=== PATIENT | female | born 1985 | race Caucasian/White ===

== ENCOUNTER 2021-04-30 09:10 | Emergency (ER) | payer OTHER, SELFPAY ==
[2021-04-30 09:15] VITALS: BP 134/84; PULSE 87; RESP 18; TEMP 36.6; O2SAT 99; BMI 28.3
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
--- NOTE | 2021-04-30 09:41 | PC.NURSE ---
MD did a rectal exam and states that the area looks well with no active bleeding or noticeable cuts or incisions.
== END 2021-04-30 10:00 | disposition home or self-care (01) ==
PROVIDERS: Emergency Provider Emergency Medicine; Family Provider Physician Assistant Medical; PCP Physician Assistant Medical
DX: K64.8 Other hemorrhoids (principal); K64.4 Residual hemorrhoidal skin tags; F17.200 Nicotine dependence, unspecified, uncomplicated
CPT/HCPCS: 99281

== ENCOUNTER 2021-05-09 12:42 | Day surgery (SDC) | payer OTHER, SELFPAY ==
[2021-05-08 09:24] VITALS: BMI 28.3
[2021-05-09] VITALS (8 sets, daily range): BP systolic 124–138; BP diastolic 65–94; PULSE 67–100; RESP 13–16; TEMP 36.3–36.8; O2SAT 98–100; BMI 28.3
[2021-05-09] MEDS: LACTATED RINGERS 1,000 ML 42 ML IV (13:36)
[2021-05-09] MEDS: ACETAMINOPHEN 325 MG TABLET 975 MG PO (13:39)
[2021-05-09] MEDS: GABAPENTIN 300 MG CAPSULE PO (13:39)
[2021-05-09] MEDS: SCOPOLAMINE 1 PATCH TOP (13:39)
--- NOTE | 2021-05-09 14:09 | PM.PREOP ---
Pre-operative Note Interval Note History & Physical reviewed/Exam performed by Physician: Yes Changes to H&P: No
--- NOTE | 2021-05-09 14:45 | SUR.OPER ---
Prone on padded OR bed, head in foam head support, gel chest rolls, gel pad under knees, pillow under lower legs, toes free of pressure, arms secured on padded arm boards at <90 degrees abduction. Safety belt at thigh.
[2021-05-09] MEDS: BUPIVACAINE 0.25% (PF) VIAL 30 ML INJ (14:49)
[2021-05-09] MEDS: BUPIVACAINE LIPOSOME 266 MG/20 ML VIAL INJ (14:50)
[2021-05-09] MEDS: DIBUCAINE 1% OINT 28 GM 1 APPLIC TOP (14:51)
--- NOTE | 2021-05-09 15:35 | PM.OP.1 ---
Operative Date/Time/Diagnoses Date of procedure: 05/09/21 Time of procedure: 15:36 Pre-op diagnosis: hemorrhoids Post-op diagnosis: same Procedure & Clinicians Procedure: excisional hemorrhoidectomy Same procedure as scheduled: Yes Indications: grade 3 internal hemorrhoids with external component Surgeon: Jose Daniel Gottlieb Operative Notes Findings: grade 3 internal hemorrhoids with external component. Right anterior and left lateral Specimen(s): none sent Estimated Blood Loss (mL): 10 Procedure in detail: The patient was brought to the operating room placed supine on the table. Bilateral lower extremity compression devices were applied. General anesthesia was induced and they were intubated with an endotracheal tube. They were then placed into prone position and appropriately padded. They were then prepped and draped in usual sterile fashion. Time-out was performed. Rectal block was performed by injecting 20 mL of Exparel into the intersphincteric groove. An internal examination of the anal canal was made. The right anterior and left lateral hemorrhoid pedicles freely prolapsed consistent with grade 3. Beginning with the left lateral pedicle it was grasped elevated and excised with electrocautery off the internal sphincter. The mucosal defect was then closed with a running 3-0 Vicyrl suture. Hemostasis was checked. The procedure was then repeated for the right anterior. The specimens were passed off the field. Wound was irrigated with saline. Gelfoam coated in Dibucaine ointment 1% was then placed into the anal canal. Sponge and instrument counts were correct at the end of the procedure. They emerged from anesthesia were extubated and transferred to the postoperative care unit in stable condition. Complications: none Post-operative Condition: stable Disposition: same day surgery
--- NOTE | 2021-05-09 16:13 | SUR.PHASEII ---
1600- Pt given clothing to redress and curtain closed for privacy. After patient dressed surgeon to bedside to answer additional questions for patient. DC paperwork provided. Sitz bath tools provided as well as teaching.
== END 2021-05-09 16:14 | disposition home or self-care (01) ==
PROVIDERS: Family Provider Physician Assistant Medical; PCP Physician Assistant Medical; Referring Provider Surgery; Visit Provider Surgery
PROC: (CPT 46260; principal; 2021-05-09 14:15)
DX: K64.2 Third degree hemorrhoids (principal); K21.9 Gastro-esophageal reflux disease without esophagitis; F41.9 Anxiety disorder, unspecified
CPT/HCPCS: 46260; 81025; C9290; J0330; J1100; J1885; J2250; J2405; J2704; J3010

== ENCOUNTER 2021-07-14 01:04 | Emergency (ER) | payer OTHER, SELFPAY ==
[2021-07-14 01:12] VITALS: BP 155/85; PULSE 70; RESP 15; TEMP 36.6; O2SAT 100; BMI 28.3
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
[2021-07-14] MEDS: KETOROLAC 30 MG/ML VIAL IM (02:02)
[2021-07-14] MEDS: HYDROCODONE/ACET 5/325 PREPACK 1 BOTTLE MISC (02:34)
== END 2021-07-14 02:40 | disposition home or self-care (01) ==
PROVIDERS: Emergency Provider Emergency Medicine; Family Provider Physician Assistant Medical; PCP Physician Assistant Medical
DX: S42.442A Displaced fracture (avulsion) of medial epicondyle of left humerus, initial encounter for closed fracture (principal); W22.8XXA Striking against or struck by other objects, initial encounter
CPT/HCPCS: 29105; 73080; 96372; 99283; J1885

== ENCOUNTER → 2021-07-26 10:16 | Outpatient (CLI) | payer OTHER, SELFPAY ==
--- NOTE | 2021-07-26 10:32 | DI.CT.S_ITS ---
PROCEDURE: CT UE LT WO CON INDICATIONS: displaced fracture of lower end of left humerus TECHNIQUE: Noncontrast 1-1.5 mm axial sections were acquired through the elbow joint, with coronal and sagittal reformats. COMPARISON: [facility], CR, XR ELBOW LT MIN 3V, 07/14/2021, 1:18. FINDINGS: Image quality: Excellent. Bones: No acute, displaced fracture or dislocation. Soft tissues: Calcifications within the common extensor tendon, compatible with calcific tendinopathy. No elbow joint effusion. IMPRESSION: Calcific tendinopathy of the common extensor tendon. Dictated by: Enrrique Ruiz M.D. on 07/26/2021 at 11:50 Approved by: Enrrique Ruiz M.D. on 07/26/2021 at 12:01
== END ==
PROVIDERS: Family Provider Physician Assistant Medical; PCP Internal Medicine; Referring Provider Orthopaedic Surgery; Visit Provider Orthopaedic Surgery
DX: S42.492B Other displaced fracture of lower end of left humerus, initial encounter for open fracture (principal); M65.822 Other synovitis and tenosynovitis, left upper arm
CPT/HCPCS: 73200

== ENCOUNTER 2022-06-12 09:09 | Emergency (ER) | payer OTHER, SELFPAY ==
[2022-06-12 09:10] VITALS: BP 130/81; PULSE 71; RESP 14; TEMP 36.8; O2SAT 100; BMI 28.3
--- NOTE | 2022-06-12 09:21 | ED_ITS ---
HPI - Neck Pain/Injury General Chief Complaint: Neck Pain/Injury Stated Complaint: pain in lt side of neck, sharp shooting pain ear Time Seen by Provider: 06/12/22 09:20 Mode of arrival: Ambulatory History of Present Illness HPI Narrative: Patient is a 36-year-old female with no pertinent past medical history presenting today with left-sided neck pain and spasm. She decided to start an exercise program she went to the gym a few days ago and since then she is been unable to turn her neck. She has taken Tylenol and Advil at home. No numbness tingling or weakness. It is tender to touch decreased range of motion. No fever or chills. Not a diabetic, no history of drug use. Related Data Home Medications Medication Instructions Recorded Confirmed cetirizine 10 mg capsule (Zyrtec) 10 mg PO DAILY 05/09/21 05/31/21 fluticasone propionate 50 2 spray intranasal DAILY 05/09/21 05/31/21 mcg/actuation nasal spray,suspension (Flonase Allergy Relief) Previous Rx's Medication Instructions Recorded acetaminophen 325 mg capsule 650 mg PO QID PRN pain #60 caps 05/09/21 (Tylenol) docusate sodium 100 mg capsule 100 mg PO BID #40 caps 05/09/21 (Colace) psyllium husk 3.4 gram/5.4 gram 1 tbsp PO BID #660 grams 05/09/21 oral powder (Metamucil) hydrocodone 5 mg-acetaminophen 325 1 tab PO Q6H PRN pain #10 tabs 07/14/21 mg tablet azithromycin 250 mg tablet See Rx Instructions PO .COMPLEX #6 01/09/22 tabs benzonatate 100 mg capsule 100 mg PO BID-TID PRN cough #14 01/09/22 caps diazepam 5 mg tablet (Valium) 5 mg PO Q12HR PRN muscle spasm #10 06/12/22 tabs hydrocodone 5 mg-acetaminophen 325 1 tab PO Q6H PRN pain #10 tabs 06/12/22 mg tablet Allergies Allergy/AdvReac Type Severity Reaction Status Date / Time No Known Drug Allergies Allergy Verified 06/12/22 09:14 Review of Systems Review of Systems ROS Unobtainable: All systems reviewed & are unremarkable except as noted in HPI and below Patient History Medical History Abuse Anxiety Hemorrhoids Surgical History H/O LEEP Social History household members: friend(s) Smoking Status: Current some day smoker alcohol intake: current Smoking Status: Current some day smoker alcohol intake frequency: 0-2 drinks per day Substance Use Type: does not use Exam Initial Vital Signs Initial Vital Signs: Vital Signs Temperature 98.3 F 06/12/22 09:10 Pulse Rate 71 06/12/22 09:10 Respiratory Rate 14 06/12/22 09:10 Blood Pressure 130/81 06/12/22 09:10 Pulse Oximetry 100 06/12/22 09:10 Oxygen Delivery Method 06/12/22 09:10 GENERAL: Alert pleasant 36-year-old female appears uncomfortable HEENT: Head atraumatic,EOMI, pupils reactive, face symmetric, moist mucous membranes NECK: No vertebral tenderness or step-off significant tenderness lateral left side over the trapezius muscle reproducible with palpation. Decreased range of motion to left. CARDIOVASCULAR: Regular rate and rhythm without murmurs, rubs or gallops. RESPIRATORY: Breath sounds equal bilaterally, no wheezes rales or rhonchi. ABDOMEN: Soft, nontender. Normoactive bowel sounds all 4 quadrants. No guarding or rebound. EXTREMITIES: Normal range of motion, no clubbing or edema. Neurovascularly intact NEUROLOGICAL: Alert and oriented x4. SKIN: Warm, dry, no laceration, no petechiae, no rashes or lesions. Course Orders Ordered: Discontinued Medications Diazepam (Diazepam 5 Mg Tablet) 5 mg PO NOW ONE Stop: 06/12/22 09:39 Last Admin: 06/12/22 09:55 Dose: 5 mg Documented By: LEON Ketorolac Tromethamine (Ketorolac 30 Mg/Ml Vial) 30 mg IM NOW ONE Stop: 06/12/22 09:39 Last Admin: 06/12/22 09:56 Dose: 30 mg Documented By: LEON Vital Signs Vital signs: Vital Signs - 8 hr 06/12/22 09:10 Temperature 98.3 F Pulse Rate 71 Respiratory Rate 14 Blood Pressure 130/81 Pulse Oximetry 100 Oxygen Delivery Method Room Air MDM - Neck Pain/Injury MDM Narrative Medical decision making narrative: Patient 36-year-old female presents with left sided neck pain after starting exercise program. Pain is reproducible with test and decreased range of motion, suggesting muscle spasm. She is given Toradol and Valium here in the ED with some relief. We discussed treatment at home including stretching heat in mild activity. MDM * differential diagnosis includes but not limited to: Muscle spasm strain * Prior records reviewed: None * My lab interpretation: None * My imaging interpretation: None * Clinical Decision Rules/Scores evaluated: None * Independent discussions with: Not=ne * Social Considerations: None * Shared Decision Making: With patient *Disposition: see below, along with detailed discharge instructions that have been reviewed with patient as well as indications for ED re-evaluation and additional outpatient follow up Discharge Plan Departure Patient Disposition: Home Clinical Impression: Strain of neck muscle Instructions: Neck Sprain Activity Restrictions/Additional Instructions: *You have been diagnosed with neck muscle strain and spasm *What to do: At this time encourage you to try heat and increase some mild activity and movement. No strenuous activity until it does not hurt any longer. *Continue to take medications as directed --> SENT TO [facility] [place] Ibuprofen 600 mg every 6 hours if needed for [id number] pain Valium 5 mg every 12 hours only if needed for muscle spasm this does cause drowsiness [place] 1 tablet every 6 hours if needed for severe pain this also causes drowsiness *Follow up with your primary care provider in 2-3 days or call [phone] *Return to ER if you should have increased pain weakness, or any new, worsening or concerning symptoms CONTROLLED SUBSTANCE DISCHARGE (Narcotoic/benzodiazepine/Flexeril/Phenergan) 1. You have been prescribed narcotic medications, it does have acetaminophen/Tylenol/paracetamol in it, DO NOT TAKE MORE THAN 4,00mg in 24 hours of Tylenol. TRAMADOL DOES NOT CONTAIN TYLENOL 2. Please understand that we cannot provide further refills of narcotics, benzodiazepines or controlled substances through the ED and her pain management will need to be through your provider. 3. While on these medications you cannot drive or operate heavy machinery. 4. You cannot sign legal documents or perform any duties such as this. 5. As long as you're taking opiate pain medications he should also be taking a stool softener such as Colace, Dulcolax, MiraLAX or prune juice, to help avoid constipation. Prescriptions: New hydrocodone-acetaminophen 5-325 mg tablet 1 tab PO Q6H PRN (Reason: pain) Qty: 10 0RF diazepam [Valium] 5 mg tablet 5 mg PO Q12HR PRN (Reason: muscle spasm) Qty: 10 0RF No Action benzonatate 100 mg capsule 100 mg PO BID-TID PRN (Reason: cough) Qty: 14 0RF azithromycin 250 mg tablet See Rx Instructions PO .COMPLEX Qty: 6 0RF Rx Instructions: Take 2 tablets (500mg) by mouth today (day 1), then 1 tablet (250mg) by mouth for 4 days (days 2-5). Finish all of this medication. fluticasone propionate [Flonase Allergy Relief] 50 mcg/actuation [place],Suspension 2 spray INTRANASAL DAILY Zyrtec 10 mg Capsule 10 mg PO DAILY docusate sodium [Colace] 100 mg capsule 100 mg PO BID Qty: 40 0RF acetaminophen [Tylenol] 325 mg capsule 650 mg PO QID PRN (Reason: pain) Qty: 60 0RF Metamucil 3.4 gram/5.4 gram powder 1 tbsp PO BID Qty: 660 0RF Rx Instructions: mix into at least 8 oz of water or juice before administering hydrocodone-acetaminophen 5-325 mg tablet 1 tab PO Q6H PRN (Reason: pain) Qty: 10 0RF Referrals: Jaylyn Esparza ARNP [Primary Care Provider] - Stand Alone Forms: Patient Portal/API
[2022-06-12] MEDS: diazePAM 5 MG TABLET PO (09:55)
[2022-06-12] MEDS: KETOROLAC 30 MG/ML VIAL IM (09:56)
== END 2022-06-12 10:26 | disposition home or self-care (01) ==
PROVIDERS: Emergency Provider Emergency Medicine; Family Provider Physician Assistant Medical; PCP Internal Medicine
DX: S16.1XXA Strain of muscle, fascia and tendon at neck level, initial encounter (principal); Z79.899 Other long term (current) drug therapy
CPT/HCPCS: 96372; 99283; J1885